=== PATIENT | male | born 2000 | race Caucasian/White ===

== ENCOUNTER 2022-12-04 15:25 | Outpatient (REF) | payer OTHER, SELFPAY ==
--- NOTE | ~2022-12-04 | MR_ITS ---
EXAMINATION: MR KNEE WITHOUT CONTRAST, LEFT CLINICAL INFORMATION: Internal derangement of the left knee. COMPARISON: None available. TECHNIQUE: MRI of the knee without contrast was performed using routine sequences on a high-field scanner. FINDINGS: MENISCI: Medial Meniscus: Intact Lateral Meniscus: Intact LIGAMENTS: Cruciate: A complete tear of the ACL is located at the level of the midsubstance. The stump fragments are edematous with frayed, torn margins. PCL is intact. Collateral: Intact EXTENSOR MECHANISM: Intact ARTICULAR CARTILAGE/BONE: Patellofemoral Compartment: Normal Medial Compartment: Osseous contusions are present at the medial margin of the medial femoral condyle and the posterior margin of the medial tibial plateau. Articular cartilage appears well-preserved. Lateral Compartment: At the sulcus terminalis of the lateral femoral condyle, there is a 1.5 x 1.5 cm area of mild articular cortical depression (2 mm) with intense underlying marrow edema signal. No discrete cortical step-offs or appreciable articular cartilage loss. Osseous contusions are also present at the posterior margin of the lateral tibial plateau and at the proximal fibula. JOINT FLUID AND BURSAE: Moderate-sized joint effusion. No Fraga's cyst. MR/MR knee LT wo con IMPRESSION: Complete tear of the ACL. Osseous contusions at the medial and lateral femoral condyles and the posterior margin of the medial and lateral tibial plateau. Shallow articular cortical depression fracture at the sulcus terminalis of the lateral femoral condyle. Moderate-sized joint effusion. Intact menisci.
== END 2022-12-04 15:26 | disposition home or self-care (01) ==
LOC: HO.MRI 15:25
PROVIDERS: Visit Provider Family Medicine Sports Medicine
DX: M23.92 Unspecified internal derangement of left knee (principal)
CPT/HCPCS: 73721